=== PATIENT | female | born 1960 | race Hispanic/Latino ===

== ENCOUNTER → 2017-11-09 | Outpatient (CLI) | payer BC | END | disposition home or self-care (01) | LOC: RAH 11:10 | DX: Z12.31 Encounter for screening mammogram for malignant neoplasm of breast (principal) | CPT/HCPCS: 77067 ==

== ENCOUNTER → 2018-12-04 | Outpatient (CLI) | payer BC | END | disposition home or self-care (01) | LOC: RAH 15:56 | PROVIDERS: ATTEND Internal Medicine | DX: Z12.31 Encounter for screening mammogram for malignant neoplasm of breast (principal) | CPT/HCPCS: 77067 ==

== ENCOUNTER → 2020-04-14 | Outpatient (CLI) | payer BC | END | disposition home or self-care (01) | LOC: RAH 15:39 | PROVIDERS: ATTEND Internal Medicine | DX: Z12.31 Encounter for screening mammogram for malignant neoplasm of breast (principal) | CPT/HCPCS: 77067 ==

== ENCOUNTER → 2022-09-06 | Outpatient (CLI) | payer BC | END | disposition home or self-care (01) | LOC: RAH 15:41 | PROVIDERS: ATTEND Internal Medicine | DX: Z12.31 Encounter for screening mammogram for malignant neoplasm of breast (principal) | CPT/HCPCS: 77067 ==

== ENCOUNTER → 2023-04-13 | Outpatient (CLI) | payer BC | END | disposition home or self-care (01) | LOC: RAH 14:50 | PROVIDERS: ATTEND Obstetrics & Gynecology | DX: N63.10 Unspecified lump in the right breast, unspecified quadrant (principal); R59.0 Localized enlarged lymph nodes | CPT/HCPCS: 76641 ==

== ENCOUNTER → 2023-05-07 | Outpatient (CLI) | payer BC ==
[2023-05-07 12:06] LABS: INR < 0.93 (0.85-1.15); PROTHROMBIN TIME 10.2 SEC (9.6-11.6)
[2023-05-07 12:07] LABS: PARTIAL THROMBOPLASTIN TIME 26.5 SEC (26.3-35.5)
== END | disposition home or self-care (01) ==
LOC: RAH 10:20
PROVIDERS: ATTEND Obstetrics & Gynecology
DX: C50.811 Malignant neoplasm of overlapping sites of right female breast (principal); Z79.01 Long term (current) use of anticoagulants
CPT/HCPCS: 19083; 85610; 85730; 36415; 88305; A4215 ×2; A4648

== ENCOUNTER 2023-05-29 08:59 | Day surgery (SDC) | payer BC ==
[2023-05-28 12:23] VITALS: BP 143/96; PULSE 69; RESP 18
[2023-05-28 12:48] LABS: BASOPHILS # (AUTO) 0.03 K/uL (0.00-0.20); BASOPHILS % (AUTO) 0.8 % (0.0-5.0); EOSINOPHILS # (AUTO) 0.03 K/uL (0.00-0.70); EOSINOPHILS % (AUTO) 0.8 % (0.0-8.0); HEMATOCRIT 41.8 % (36-48); IMMATURE GRANULOCYTE ABSOLUTE 0.01 K/uL (0-1); LYMPHOCYTES # (AUTO) 1.2 K/uL (1.0-4.8); LYMPHOCYTES % (AUTO) 30.6 % (21.0-51.0); MEAN CORPUSCULAR HEMOGLOBIN 30.2 pg (27.0-33.0); MEAN CORPUSCULAR HGB CONC 32.8 g/dL (32.0-36.0); MEAN CORPUSCULAR VOLUME 92.1 fL (79-99); MONOCYTES # (AUTO) 0.4 K/uL (0.1-1.0); MONOCYTES % (AUTO) 10.4 % (3.0-13.0); NEUTROPHILS # (AUTO) 2.2 K/uL (1.8-7.7); NEUTROPHILS % (AUTO) 57.1 % (40.0-77.0); PLATELET COUNT (AUTO) 308 K/uL (130-400); RED BLOOD CELL COUNT(AUTO) 4.54 MIL/uL (4.00-5.50); RED CELL DISTRIBUTION WIDTH 12.4 % (11.0-15.5); WHITE BLOOD COUNT (AUTO) 3.9 K/uL (4.8-10.8)
[2023-05-28 13:02] LABS: INR < 0.93 (0.85-1.15); PROTHROMBIN TIME 9.9 SEC (9.6-11.6)
[2023-05-28 13:03] LABS: PARTIAL THROMBOPLASTIN TIME 26.3 SEC (26.3-35.5)
[2023-05-28 13:04] LABS: CREATININE 0.8 mg/dL (0.5-1.5); POTASSIUM 3.9 mmol/L (3.5-5.1)
[2023-05-29] VITALS (18 sets, daily range): BP systolic 124–161; BP diastolic 69–100; PULSE 61–94; RESP 13–20
[~2023-05-29] VITALS: Ht 154.9 cm; Wt 68.0 kg
[2023-05-29] MEDS ORDERED: LACTATED RINGERS 1000ML 1,000 ML IV ONE (09:35)
[2023-05-29] MEDS ORDERED: CEFAZOLIN SODIUM 2 GM VIAL ONE (09:35)
[2023-05-29] MEDS ORDERED: LEVO50TA11 PO (10:39)
[2023-05-29] MEDS ORDERED: BUPIVACAINE/PF 0.5% 30ML VIAL ONE (11:16)
[2023-05-29] MEDS ORDERED: PROPOFOL 10 MG/ML 20ML VIAL IV ONE (12:39)
[2023-05-29] MEDS ORDERED: BUPIVACAINE/PF 0.5% 30ML VIAL INJ ONE (12:40)
[2023-05-29] MEDS ORDERED: MIDAZOLAM HCL 1 MG/ML 2ML VIAL ONE (12:40)
[2023-05-29] MEDS ORDERED: LIDOCAINE HCL-MPF 2% 10ML AMP IJ ONE (12:41)
[2023-05-29] MEDS ORDERED: FENTANYL CITRATE PF 50 MCG/1 ML 2ML VIAL ONE (12:42)
[2023-05-29] MEDS ORDERED: CEFAZOLIN SODIUM 2 GM VIAL IVPB ONE (12:43)
[2023-05-29] MEDS ORDERED: ROCURONIUM 10MG/1ML SYR 10 MG/ML ML ONE (12:45)
[2023-05-29] MEDS ORDERED: NEOSTIGMINE 5MG/5ML SYR IV ONE (13:04)
[2023-05-29] MEDS ORDERED: GLYCOPYRROLATE 1 MG/5 ML SYRINGE ONE (13:04)
[2023-05-29] MEDS ORDERED: TRAM50TA4 PO (13:14)
[2023-05-29] MEDS ORDERED: DOCU-116 PO (13:14)
== END 2023-05-29 15:00 | disposition home or self-care (01) ==
LOC: DAH 08:59
PROVIDERS: ATTEND Surgery
DX: C50.411 Malignant neoplasm of upper-outer quadrant of right female breast (principal); E21.3 Hyperparathyroidism, unspecified; Z79.899 Other long term (current) drug therapy; Z79.01 Long term (current) use of anticoagulants; Z83.3 Family history of diabetes mellitus; Z80.41 Family history of malignant neoplasm of ovary; Z79.890 Hormone replacement therapy
CPT/HCPCS: 80048; 85025; 85610; 85730; 36415; 36561; 77001; 71045; A6260; A4663; A4606; C1788; J7120; J3010; J3490 ×4; J2710; J2250; J2704; J1644; J0690 ×2; A4930 ×2; A4215; A4223; A4222; A4221; A4600; 77002; G0168

== ENCOUNTER 2023-06-28 08:45 | Day surgery (SDC) | payer BC ==
[2023-06-26 12:52] VITALS: BP 131/84; PULSE 73; RESP 14
[~2023-06-28] VITALS: Ht 154.9 cm; Wt 68.3 kg
[~2023-06-28 08:45] MED LIST: LEVO50TA11 PO; ONDA8TAB12 PO
[2023-06-28 10:09] VITALS: BP 124/74; PULSE 67; RESP 18
[2023-06-28] MEDS ORDERED: IOHEXOL 180 MG/ML 20 ML VIAL ONE (12:06)
[2023-06-28] MEDS ORDERED: HEPARIN PF LOCK 500 UNIT/5ML IV ONE (12:23)
[2023-06-28 12:50] VITALS: BP 123/78; PULSE 62; RESP 16
== END 2023-06-28 14:00 | disposition home or self-care (01) ==
LOC: DAH 08:45
PROVIDERS: ATTEND Internal Medicine Medical Oncology
DX: C50.411 Malignant neoplasm of upper-outer quadrant of right female breast (principal); Z79.01 Long term (current) use of anticoagulants; Z95.828 Presence of other vascular implants and grafts
CPT/HCPCS: 76000; J1642; Q9965; A4223; A4663

== ENCOUNTER → 2024-04-01 | Outpatient (CLI) | payer BC ==
[~2024-04-01] MED LIST changes: -ONDA8TAB12 PO
== END | disposition home or self-care (01) ==
LOC: RAH 13:33
PROVIDERS: ATTEND Internal Medicine Medical Oncology
DX: M85.88 Other specified disorders of bone density and structure, other site (principal); Z78.0 Asymptomatic menopausal state
CPT/HCPCS: 77080

== ENCOUNTER 2025-03-27 12:17 | Emergency (ER) | payer BC ==
[~2025-03-27] VITALS: Ht 152.4 cm; Wt 68.0 kg
--- NOTE | 2025-03-27 12:25 | ERN ---
ED Note History of Present Illness Stated Complaint: NECK AND BACK PAIN TO RIGHT SIDE Chief Complaint: Neck Pain Time Seen by MD: 12:20 Dictation: PATIENT IS A 64-YEAR-OLD FEMALE STATES SHE WAS CLOSING A METAL GATE WHEN SHE GOT PINNED BETWEEN THE DOOR AND HER GAIT. SHE SAID SHE IS HAVING PAIN TO THE RIGHT POSTERIOR SHOULDER AND THORACIC SPINE. NO MIDLINE SPINE PAIN NO CONTUSIONS NO ABRASIONS ON EXAM IN TRIAGE. RANGE OF MOTION INTACT TO ALL EXTREMITIES MOVES ALL EXTREMITIES 5/5 BILATERALLY. HAS NOT TAKEN ANYTHING PRIOR TO ARRIVAL FOR PAIN. Allergies: Coded Allergies: No Known Allergies (Unverified Allergy, Unknown, 10/29/14) Home Meds Reported Medications Levothyroxine Sodium (Levothyroxine Sodium) 50 Mcg Tablet, 50 MCG PO DAILY, TAB 05/29/23 Past Medical History History: Not Applicable RN Note Reviewed/Agreed w/PFSH: Yes Review of System Dictation CONSTITUTIONAL: NEGATIVE EXCEPT FOR HPI HEAD/FACE: NEGATIVE EXCEPT FOR HPI EENT: NEGATIVE EXCEPT FOR HPI RESPIRATORY: NEGATIVE EXCEPT FOR HPI GASTROINTESTINAL/ABDOMINAL: NEGATIVE EXCEPT FOR HPI GENITOURINARY: NEGATIVE EXCEPT FOR HPI MUSCULOSKELETAL: NEGATIVE EXCEPT FOR HPI RIGHT POSTERIOR SHOULDER AND T-SPINE PAIN INTEGUMENTARY: NEGATIVE EXCEPT FOR HPI NEUROLOGICAL/PSYCH: NEGATIVE EXCEPT FOR HPI HEMATOLOGIC/LYMPHATIC: NEGATIVE EXCEPT FOR HPI ALL SYSTEMS NEGATIVE, EXCEPT NOTED ABOVE. 13 POINT REVIEW OF SYSTEMS ASSESSED AND ALL NEGATIVE EXCEPT FOR ABOVE. Initial Vital Sign VS Vital Signs Date Time Temp Pulse Resp B/P (MAP) Pulse Ox O2 Delivery O2 Flow Rate FiO2 03/27/25 12:19 97.5 83 19 150/94 98 Room Air 0 03/27/25 12:38 21 Physical Exam Dictation VITAL SIGNS REVIEWED GENERAL APPEARANCE: ALERT, ORIENTED X 3, MODERATE ACUTE DISTRESS, WELL DEVELOPED, NOURISHED. HEAD AND FACE: NON-TRAUMATIC. EYES: PERRL, PINK CONJUNCTIVAS, EYELID NO TRAUMA, ANTERIOR CHAMBER WITH ARCUS SENILIS. EARS: PINNAS INTACT AND NO SIGNS OF TRAUMA OR ERYTHEMA EAR CANALS CLEAR AND NO DISCHARGE TM NO ERYTHEMA NOSE: NO DISCHARGE, NO BLEEDING. OROPHARYNX: MOUTH NORMAL, TONGUE PINK, PHARYNX CLEAR,NO ERYTHEMA, TONSILS NO EXUDATES, NO ABSCESSES NOTED, MUCOUS MEMBRANE MOIST NECK: SUPPLE, NON-TENDER, NO THYROMEGALY, NO MASSES, NO JVD, NO BRUITS BREAST:DEFERRED CHEST:NO TENDERNESS, NO CREPITUS, NO PARADOXICAL MOVEMENT, NO RETRACTIONS LUNGS:CLEAR, WELL-VENTILATED, SYMMETRIC, NO RALES, NO WHEEZING, NO RHONCHI, NO STRIDOR, GOOD BREATH SOUNDS BILATERALLY HEART: REGULAR RATE, REGULAR RHYTHM, NO MURMUR, NO GALLOPS VASCULAR: NO PERIPHERAL EDEMA, ABDOMEN: SOFT, POSITIVE BOWEL SOUNDS, NONDISTENDED, NO GUARDING, NONTENDER, NO REBOUND, NO MASSES NO HEPATOMEGALY, NO SPLENOMEGALY, NO HADDAD'S SIGN, NO HERNIAS. RECTAL: DEFERRED GENITAL: DEFERRED NEUROLOGICAL: NORMAL SPEECH, MOTOR FUNCTION INTACT, SENSORY FUNCTION INTACT MUSCULOSKELETAL: NECK NONTENDER, FULL RANGE OF MOTION RIGHT LATERAL T-SPINE PAIN. NO MIDLINE SPINE PAIN. WAS ALL EXTREMITIES 5/5 EXTREMITIES: MILD POSTERIOR RIGHT SHOULDER TENDERNESS PROXIMAL SCAPHOID AREA RANGE OF MOTION TO RIGHT UPPER EXTREMITY SKIN: COLOR PINK, DRY, NO TURGOR, NO RASH, NO LACERATIONS, NO ABRASIONS, NO CONTUSIONS. LYMPHATIC: DEFERRED Results (Laboratory/Radiology) Laboratory/Radiology 1335/T-spine and right shoulder negative. Degenerative Labs Reviewed?: Yes ED Course ED Course Orders Procedure Category Date Status Time Ibuprofen 800 Mg Tab PHA 03/27/25 Complete (Motrin) 12:30 Cyclobenzaprine Hcl PHA 03/27/25 Complete (Cyclobenzaprine Hcl 12:30 Shoulder Comp 2+Vws Rt RAD 03/27/25 Taken 12:22 Thoracic Spine 2vws RAD 03/27/25 Taken 12:22 Current Medications Medications (Trade) Dose Ordered Sig/Alisha Route PRN Reason Start Time Stop Time Status Last Admin Dose Admin Cyclobenzaprine HCl (Cyclobenzaprine HCl) 10 mg ONCE ONCE PO 03/27/25 12:30 03/27/25 12:31 DC 03/27/25 12:42 Ibuprofen (moTRIN) 800 mg ONCE ONCE PO 03/27/25 12:30 03/27/25 12:31 DC 03/27/25 12:42 Vital Signs Date Time Temp Pulse Resp B/P (MAP) Pulse Ox O2 Delivery O2 Flow Rate FiO2 03/27/25 12:38 98.2 80 16 150/90 98 Room Air* 0 21 03/27/25 12:19 97.5 83 19 150/94 98 Room Air 0 1335/pain is being reduced with cyclobenzaprine and ibuprofen. Patient and aware this is a contusion of the shoulder We will be prescribed cyclobenzaprine and ibuprofen, rice instructions Follow up with her primary care doctor in 1-2 days. Medical Decision Making MDM Medical decision-making based on x-ray of T-spine and right shoulder. Degenerative changes only no fracture Patient states pain is improved with cyclobenzaprine and ibuprofen We will discharged home with same and have her follow up with her doctor Liban instructions given DX & DISP Disposition: Discharge Departure Impression: Primary Impression: Contusion of right shoulder, initial encounter Additional Impression: Blunt trauma Condition: Stable Scripts Cyclobenzaprine HCl (Cyclobenzaprine HCl) 10 Mg Tablet 1 TAB PO TID for muscle spasms for 10 Days, #30 TAB 0 Refills Prov: ESTELLE DE LOS SANTOS [employer] 03/27/25 Ibuprofen (Ibuprofen 800 mg Tab) 800 Mg Tab 800 MG PO Q8H PRN for fever or pain, #30 TAB 0 Refills Prov: ESTELLE DE LOS SANTOS [employer] 03/27/25 Additional Instructions: Follow-up with primary care provider in 1 to 2 days. Take medications as directed here in the emergency room. Okay to continue home medications unless otherwise discussed during your visit in the emergency room today. Return to your nearest emergency room if symptoms worsen or if there is no improvement. Call 911 if you need immediate assistance. Take Tylenol or Motrin [id number] as needed and if no contraindications are present. Increase oral hydration. A wound culture or urine culture was ordered here in the emergency room department please follow-up with primary care provider and advise them to get repeat ports from our facility. If you had any William wrap/splints that were applied here, please do not remove them until you see your primary care or specialty. Take ibuprofen and Flexeril every8 hours with food for two days. Cool compresses to pain three to 4 times a day. Follow up with your primary care doctor as needed for management Referrals: TYLER GREY MD (PCP) Time of Disposition: 13:40 I have reviewed the case, and I agree with, Diagnosis and Plan ESTELLE DE LOS SANTOS NP Mar 27, 2025 12:25
[2025-03-27] MEDS: CYCLOBENZAPRINE HCL 10 MG TABLET PO ONE (12:42)
[2025-03-27] MEDS ORDERED: CYCL-309 PO (13:41)
[2025-03-27] MEDS ORDERED: IBUP-2077 PO (13:41)
[2025-03-27 14:12] VITALS: BP 152/88; PULSE 76; RESP 16; TEMP 98.3; O2SAT 98
== END 2025-03-27 14:21 | disposition home or self-care (01) ==
LOC: EDH 12:17
DX: S40.011A Contusion of right shoulder, initial encounter (principal); Z79.890 Hormone replacement therapy; X58.XXXA Exposure to other specified factors, initial encounter; Y93.89 Activity, other specified; Y92.89 Other specified places as the place of occurrence of the external cause; Y99.8 Other external cause status
CPT/HCPCS: 72070; 73030; 99283